=== PATIENT | female | born 1975 | race Caucasian/White ===

== ENCOUNTER → 2016-10-25 | Outpatient (CLI) | payer BC ==
--- NOTE | 2016-10-25 09:31 | KCIC ---
PROCEDURE Bilateral digital diagnostic mammogram; right breast sonogram. HISTORY 41-year-old female presents for six-month followup evaluation nodular densities within both breasts. TECHNIQUE Full field digital craniocaudal and mediolateral oblique standard and implant displaced views of both breasts are obtained. Computer-aided detection is applied. Sonographic imaging of the right breast was also performed. COMPARISON Mammograms dated 05/05/2016 and 10/18/2015 and sonograms dated 05/05/2016 and 10/22/2015. FINDINGS Breast parenchymal composition: Level B - Scattered fibroglandular densities. There has been no change in circumscribed nodules within the upper-outer quadrants of both breasts. There is no new suspicious mass, calcification or architectural distortion within either breast. There are unremarkable breast implants. Sonographic imaging of the right breast demonstrates a stable hypoechoic lesion with indistinct margins at the 10 o'clock position 2 cm from the nipple measuring approximately 6 mm in maximum dimension. No new lesion is seen. IMPRESSION 1. Stable 6 mm hypoechoic lesion within the 10 o'clock position of the right breast. The year of stability favors a benign fibrocystic lesion. Repeat short-term followup with a a right breast sonogram in 6 months is recommended to confirm greater than 1 year of stability. 2. No new suspicious mammographic finding. 3. BI-RADS Category 3 - Probably benign finding. Short-term followup with a right breast sonogram in 6 months is recommended. Mammography is not 100% sensitive in detecting breast cancer. Therefore, a self breast exam and a clinical breast exam are very important. A negative mammogram does not negate a clinically suspicious finding and should not result in a delay in biopsying a clinically suspicious abnormality. This patient's information has been entered into a reminder system for the patient to be notified with the results of this examination and a target date for her next mammograms. Electronically signed by: Kalee Gonzales (Oct 25, 2016 09:29:40)
== END | disposition home or self-care (01) ==
LOC: KCIC MAMMO 08:00
PROVIDERS: ATTEND Obstetrics & Gynecology
DX: R92.8 Other abnormal and inconclusive findings on diagnostic imaging of breast (principal); N63 Unspecified lump in breast
CPT/HCPCS: 76641; G0204; 77066

== ENCOUNTER → 2017-06-01 | Outpatient (CLI) | payer BC ==
--- NOTE | 2017-06-01 18:13 | KCIC ---
Right breast ultrasound: Reason for examination: Nodular density on screening mammogram. Comparison is made to mammographic examination dated 10/25/2016 and previous ultrasound examinations dated 10/25/2016, 05/05/2016 and 10/22/2015. Ultrasound examination was performed in the area of mammographic and sonographic concern and at the axilla. There continues to be a small hypoechoic lesion in the 10:00 position 2 cm from the nipple measuring 4.6 mm in greatest dimension. This appears to show a slight decrease in overall size. No new cystic or solid lesions are seen. No abnormal appearing lymph nodes are seen in the axilla. IMPRESSION: Slight decrease in the overall size of the nodule in the 10:00 position. No new lesions seen. Recommend continued 6 month sonographic follow-up. BI-RADS Category 3: Probably Benign. "Our facility is accredited by the [employer] Mammography Program." This patient's information has been entered into a reminder system for the patient to be notified with the results of her examination and a target date for the next mammogram. Electronically signed by: Lisa Schwartz MD (06/01/2017 6:09 PM) [id number]
== END | disposition home or self-care (01) ==
LOC: KCIC US 08:41
PROVIDERS: ATTEND Obstetrics & Gynecology
DX: N63 Unspecified lump in breast (principal)
CPT/HCPCS: 76641